=== PATIENT | female | born 1930 | race Caucasian/White ===

== ENCOUNTER 2017-09-10 08:48 | Day surgery (SDC) | payer MEDICARE, BC ==
[2017-09-10] MEDS ORDERED: Propofol 200 MG/20 ML SDV ONE ×2 (09:52→10:14)
[2017-09-10] MEDS ORDERED: fentaNYL 100 MCG/2 ML SDV ONE (09:52)
[2017-09-10] MEDS ORDERED: Lactated Ringers 1,000 ML IV SCH (10:00)
[2017-09-10 11:58] VITALS: BP 120/65
--- NOTE | 2017-09-10 14:41 | OR ---
DATE OF PROCEDURE: 09/10/2017 PREOPERATIVE DIAGNOSIS: Blood in stool. POSTOPERATIVE DIAGNOSES: Diverticulosis; small colon polyp 25 cm from the anal verge; blood in stool, etiology unknown. PROCEDURES PERFORMED: Colonoscopy to the cecum with biopsy resection of small polyp 25 cm from the anal verge. SURGEON: Sky De Souza MD. ANESTHESIA: IV anesthesia with monitored anesthesia care. INDICATION: This 87-year-old white female is referred for a colonoscopy because of blood in her stool. She says her last colonoscopic exam was done about ten years ago. I counseled her for the procedure, including risks and alternatives, and she gave her informed consent to proceed. DESCRIPTION OF PROCEDURE: The patient was placed in the left lateral decubitus position. IV anesthesia was administered by the Anesthesia Service. Time-out was held. A rectal exam was performed, which was unremarkable. The flexible video Olympus colonoscope was introduced through her anus, up her rectum, and out her colon all the way to the cecum. To accomplish this, we had to apply some abdominal compression. Once the cecum was reached, the scope was slowly withdrawn, examining the mucosa throughout. We saw multiple left-sided diverticula. There was no bleeding or inflammation associated with any of them. At about 25 cm from the anal verge, we encountered a small polyp, this was removed with several bites of the biopsy forceps. The scope was withdrawn further with no other lesions noted. The scope was retroflexed in the rectum with the distal rectum appearing unremarkable. The scope was straightened and removed. She tolerated the procedure well. Sky De Souza MD /[id number] [facility]
== END 2017-09-10 12:20 | disposition home or self-care (01) ==
LOC: JP.SDS 08:48
PROVIDERS: ATTEND Surgery
DX: D12.6 Benign neoplasm of colon, unspecified (principal); K57.30 Diverticulosis of large intestine without perforation or abscess without bleeding; I10 Essential (primary) hypertension; Z88.1 Allergy status to other antibiotic agents; Z88.8 Allergy status to other drugs, medicaments and biological substances
CPT/HCPCS: 45380; J2704; J3010; J7120; 88305

== ENCOUNTER 2020-01-22 10:56 | Emergency (ER) | payer MEDICARE, BC ==
[2020-01-22 11:11] VITALS: BP 185/88; PULSE 97
--- NOTE | 2020-01-22 11:31 | EDM.PDOC ---
ED HPI GENERAL MEDICAL PROBLEM - General Chief Complaint: Skin Complaint Stated Complaint: TICK UNDER LEFT ARM Time Seen by Provider: 01/22/20 11:33 Source of Information: Reports: Patient History Limitations: Reports: No Limitations - History of Present Illness INITIAL COMMENTS - FREE TEXT/NARRATIVE: pt arrived. with a concern that part of a tick remains in her left axilla. She also is concerned this could be a deer tick. Onset: Today Duration: Hour(s): Location: Reports: Upper Extremity, Left Associated Symptoms: Reports: No Other Symptoms - Related Data Allergies Allergy/AdvReac Type Severity Reaction Status Date / Time amoxicillin Allergy Other Verified 01/22/20 11:11 hydroxychloroquine Allergy Other Verified 01/22/20 11:11 levothyroxine sodium Allergy Cannot Verified 01/22/20 11:11 Remember lisinopril Allergy Cannot Verified 01/22/20 11:11 Remember meperidine HCl [From Demerol] Allergy Burning Verified 01/22/20 11:11 zolpidem AdvReac Confusion Verified 01/22/20 11:11 zolpidem tartrate AdvReac Delusions Verified 01/22/20 11:11 [From Ambien] Home Meds: Home Meds Albuterol Sulfate [Proair Hfa] 3 ml NEB QID PRN 07/25/15 [History] Albuterol [Proair HFA] 2 puff INH Q4HR PRN 07/25/15 [History] Aspirin [Low Dose Aspirin EC] 81 mg PO DAILY 07/25/15 [History] Calcium Carbonate [Tums] 500 mg PO DAILY 07/25/15 [History] Cholecalciferol (Vitamin D3) [Vitamin D3] 3,000 unit PO DAILY 07/25/15 [History] Hydrocortisone Acetate [Anusol-Hc] 25 mg RC BID PRN 07/25/15 [History] Levothyroxine Sodium [Synthroid] 112 mcg PO DAILY 07/25/15 [History] Multivitamin with Minerals [Multiple Vitamin] 1 tab PO DAILY 07/25/15 [History] Polyvinyl Alcohol [Liquitears] 1 drop EYEBOTH BID PRN 07/25/15 [History] Tiotropium [Spiriva] 1 cap INH DAILY 07/25/15 [History] Triamcinolone Acetonide [Triamcinolone Acetonide 0.1% Crm] 1 - 2 sprays TOP QID 07/25/15 [History] guaiFENesin [Mucinex] 600 mg PO ASDIRECTED PRN 07/25/15 [History] Glucosamine/D3/Boswellia Regla [Osteo Bi-Flex Caplet] 1 tab PO BID 11/11/16 [ History] Diclofenac Sodium [Voltaren 1% Gel] 2 gm TOP ASDIRECTED 09/08/17 [History] Lutein 20 mg PO DAILY 09/08/17 [History] Albuterol [Proventil Neb Soln] 3 ml INH QID 07/31/18 [History] Clobetasol [Clobetasol 0.05%] 1 gm TOP BID 07/31/18 [History] Ibuprofen 400 mg PO Q8H 07/31/18 [History] Iron,Carbonyl/Ascorbic Acid [Fe C Tablet] 1 tab PO BID 07/31/18 [History] Ketoconazole [Nizoral] 1 gm TOP WEEKLY 07/31/18 [History] Naproxen Sodium [Aleve] 220 mg PO BID PRN 06/11/19 [History] Past Medical History HEENT History: Reports: Cataract, Impaired Vision Cardiovascular History: Reports: Heart Murmur Respiratory History: Reports: Bronchitis, Recurrent, COPD, Intubation, Difficult , Intubation, Previous, Pneumonia, Recurrent, Other (See Below) Other Respiratory History: past trach from injury during intubation. Gastrointestinal History: Reports: Gastritis, GERD, Hemorrhoids, Hiatal Hernia, PUD Musculoskeletal History: Reports: Back Pain, Chronic, Osteoarthritis, Other ( See Below) Other Musculoskeletal History: bilat knee pain Neurological History: Reports: Migraines Endocrine/Metabolic History: Reports: Hypothyroidism, Osteopenia, Vitamin D Deficiency Hematologic History: Reports: B12 Deficiency, Blood Transfusion(s), Iron Deficiency Dermatologic History: Reports: Seborrheic Dermatitis - Infectious Disease History Infectious Disease History: Reports: C-Difficile, Measles, Mumps - Past Surgical History HEENT Surgical History: Reports: Cataract Surgery, Oral Surgery Cardiovascular Surgical History: Reports: None Respiratory Surgical History: Reports: Tracheostomy Other Respiratory Surgeries/Procedures: trach removed in 2001 GI Surgical History: Reports: Bariatric Procedure, Colonoscopy, EGD, Hernia, Abdominal Female Surgical History: Reports: D&C Endocrine Surgical History: Reports: None Neurological Surgical History: Reports: None Musculoskeletal Surgical History: Reports: Ganglion Cyst, Shoulder Surgery Oncologic Surgical History: Reports: None Dermatological Surgical History: Reports: Plastic Surgical Reconstruction/Repair Social & Family History - Tobacco Use Smoking Status *Q: Never Smoker - Caffeine Use Caffeine Use: Reports: Coffee ED ROS GENERAL - Review of Systems Review Of Systems: See Below Constitutional: Reports: No Symptoms HEENT: Reports: No Symptoms Respiratory: Reports: No Symptoms Cardiovascular: Reports: No Symptoms Endocrine: Reports: No Symptoms Musculoskeletal: Reports: Other ( deer tick in the left axilla. ) ED EXAM, SKIN/RASH Exam: See Below Text/Narrative:: pt had a female deer tick in the kleft axilla. She pulled it off but part of the head and a leg was left in. Exam Limited By: No Limitations General Appearance: Alert Extremities: Other (left axilla a female deer tick was stuck. The rest of it was removed .) Course - Vital Signs Last Recorded V/S: Last Vital Signs Temp 36.1 C 01/22/20 11:20 Pulse 97 01/22/20 11:20 Resp 18 01/22/20 11:20 BP 185/88 H 01/22/20 11:20 Pulse Ox 93 L 01/22/20 11:20 Departure - Departure Time of Disposition: 11:29 Disposition: Home, Self-Care 01 Condition: Fair Clinical Impression: Dermacentor andersoni tick bite - Discharge Information Instructions: Tick Bite Information, Adult, [id number] Referrals: Sadaf Shahid MD [Primary Care Provider] - Forms: ED Department Discharge Care Plan Goals: doxycline 100 m 2 tabs today and tomorrow-- to prevent tick born disease Warm pack the site Sepsis Event Note - Evaluation Sepsis Screening Result: No Definite Risk - Focused Exam Date Exam was Performed: 01/23/20 Time Exam was Performed: 07:36
== END 2020-01-22 11:42 | disposition home or self-care (01) ==
LOC: JP.ED 10:56
DX: S40.862A Insect bite (nonvenomous) of left upper arm, initial encounter (principal); J44.9 Chronic obstructive pulmonary disease, unspecified; K21.9 Gastro-esophageal reflux disease without esophagitis; M19.90 Unspecified osteoarthritis, unspecified site; E03.9 Hypothyroidism, unspecified; Z79.82 Long term (current) use of aspirin; Z79.899 Other long term (current) drug therapy; Z88.1 Allergy status to other antibiotic agents; Z88.8 Allergy status to other drugs, medicaments and biological substances; Z88.5 Allergy status to narcotic agent; W57.XXXA Bitten or stung by nonvenomous insect and other nonvenomous arthropods, initial encounter
CPT/HCPCS: 99282; 99283

== ENCOUNTER 2020-05-12 20:21 | Emergency (ER) | payer MEDICARE, BC ==
[2020-05-12 21:01] VITALS: BP 164/85; PULSE 114
--- NOTE | 2020-05-12 21:48 | EDM.PDOC ---
ED HPI GENERAL MEDICAL PROBLEM - General Chief Complaint: General Stated Complaint: FEVER,HIP PAIN Time Seen by Provider: 05/12/20 21:25 Source of Information: Reports: Patient, RN Notes Reviewed History Limitations: Reports: No Limitations - History of Present Illness INITIAL COMMENTS - FREE TEXT/NARRATIVE: Anisha presents today for complaints of fever, not feeling herself, feeling "doggy" with some nausea, headache off and on all day today. She states she was working today and got really sweaty. No central air in her home, she has ceiling fans. She reports body aches, most pain in her right hip. She states she has been doing physical therapy in the building. She denies vomiting, diarrhea, constipation, any recent injuries or falls, sore throat, cough, SOB, difficulty breathing or other concerns. - Related Data Allergies Allergy/AdvReac Type Severity Reaction Status Date / Time amoxicillin Allergy Other Verified 01/22/20 11:11 hydroxychloroquine Allergy Other Verified 01/22/20 11:11 levothyroxine sodium Allergy Cannot Verified 01/22/20 11:11 Remember lisinopril Allergy Cannot Verified 01/22/20 11:11 Remember meperidine HCl [From Demerol] Allergy Burning Verified 01/22/20 11:11 zolpidem AdvReac Confusion Verified 01/22/20 11:11 zolpidem tartrate AdvReac Delusions Verified 01/22/20 11:11 [From Ambien] Home Meds: Home Meds Albuterol [Proair HFA] 2 puff INH Q4HR PRN 07/25/15 [History] Aspirin [Low Dose Aspirin EC] 81 mg PO DAILY 07/25/15 [History] Calcium Carbonate [Tums] 500 mg PO DAILY 07/25/15 [History] Cholecalciferol (Vitamin D3) [Vitamin D3] 3,000 unit PO DAILY 07/25/15 [History] Hydrocortisone Acetate [Anusol-Hc] 25 mg RC BID PRN 07/25/15 [History] Levothyroxine Sodium [Synthroid] 112 mcg PO DAILY 07/25/15 [History] Multivitamin with Minerals [Multiple Vitamin] 1 tab PO DAILY 07/25/15 [History] Polyvinyl Alcohol [Liquitears] 1 drop EYEBOTH BID PRN 07/25/15 [History] Tiotropium [Spiriva] 1 cap INH DAILY 07/25/15 [History] Triamcinolone Acetonide [Triamcinolone Acetonide 0.1% Crm] 1 - 2 sprays TOP QID 07/25/15 [History] guaiFENesin [Mucinex] 600 mg PO ASDIRECTED PRN 07/25/15 [History] Glucosamine/D3/Boswellia Regla [Osteo Bi-Flex Caplet] 1 tab PO BID 11/11/16 [History] Diclofenac Sodium [Voltaren 1% Gel] 2 gm TOP ASDIRECTED 09/08/17 [History] Lutein 20 mg PO DAILY 09/08/17 [History] Albuterol [Proventil Neb Soln] 3 ml INH QID 07/31/18 [History] Clobetasol [Clobetasol 0.05%] 1 gm TOP BID 07/31/18 [History] Ibuprofen 400 mg PO Q8H 07/31/18 [History] Iron,Carbonyl/Ascorbic Acid [Fe C Tablet] 1 tab PO BID 07/31/18 [History] Ketoconazole [Nizoral] 1 gm TOP WEEKLY 07/31/18 [History] Naproxen Sodium [Aleve] 220 mg PO BID PRN 06/11/19 [History] Past Medical History HEENT History: Reports: Cataract, Impaired Vision Cardiovascular History: Reports: Heart Murmur Respiratory History: Reports: Bronchitis, Recurrent, COPD, Intubation, Difficult, Intubation, Previous, Pneumonia, Recurrent, Other (See Below) Other Respiratory History: past trach from injury during intubation. Gastrointestinal History: Reports: Gastritis, GERD, Hemorrhoids, Hiatal Hernia, PUD Musculoskeletal History: Reports: Back Pain, Chronic, Osteoarthritis, Other (See Below) Other Musculoskeletal History: bilat knee pain Neurological History: Reports: Migraines Endocrine/Metabolic History: Reports: Hypothyroidism, Osteopenia, Vitamin D Deficiency Hematologic History: Reports: B12 Deficiency, Blood Transfusion(s), Iron Deficiency Dermatologic History: Reports: Seborrheic Dermatitis - Infectious Disease History Infectious Disease History: Reports: C-Difficile, Measles, Mumps - Past Surgical History HEENT Surgical History: Reports: Cataract Surgery, Oral Surgery Cardiovascular Surgical History: Reports: None Respiratory Surgical History: Reports: Tracheostomy Other Respiratory Surgeries/Procedures: trach removed in 2001 GI Surgical History: Reports: Bariatric Procedure, Colonoscopy, EGD, Hernia, Abdominal Female Surgical History: Reports: D&C Oncologic Surgical History: Reports: None Dermatological Surgical History: Reports: Plastic Surgical Reconstruction/Repair Social & Family History - Caffeine Use Caffeine Use: Reports: Coffee ED ROS GENERAL - Review of Systems Review Of Systems: See Below Constitutional: Reports: Fever, Diaphoresis. Denies: Chills, Malaise, Weakness, Fatigue HEENT: Reports: No Symptoms, Other (headache off and on) Respiratory: Reports: No Symptoms Cardiovascular: Reports: No Symptoms Endocrine: Denies: Fatigue, Polydypsia, Polyuria GI/Abdominal: Reports: Nausea. Denies: Abdominal Pain, Anorexia, Black Stool, Bloody Stool, Constipation, Diarrhea, Difficulty Swallowing, Distension, Hematemesis, Hematochezia, Mucous in Stool, Stool Incontinence, Vomiting : Denies: Discharge, Dysuria, Flank Pain, Frequency, Hematuria, Pain, Urgency, Urinary Retention Musculoskeletal: Reports: Other (bilateral hip pain, right more then left. She denies pain being worse then her chronic pain. ) Skin: Reports: No Symptoms Neurological: Reports: Headache. Denies: Confusion, Dizziness, Numbness, Paresthesia, Seizure, Syncope, Tingling, Trouble Speaking, Difficulty Walking, Weakness, Change in Speech, Gait Disturbance Psychiatric: Reports: No Symptoms Hematologic/Lymphatic: Reports: No Symptoms Immunologic: Reports: No Symptoms ED EXAM, GENERAL - Physical Exam Exam: See Below Exam Limited By: No Limitations General Appearance: Alert, WD/WN, No Apparent Distress Eye Exam: Bilateral Eye: EOMI, Normal Inspection, PERRL Ears: Normal External Exam, Normal Canal, Hearing Grossly Normal, Normal TMs Nose: Normal Inspection, Normal Mucosa Throat/Mouth: Normal Inspection, Normal Lips, Normal Gums, Normal Oropharynx, No Airway Compromise, Other (Soft/hoarse voice due to history/multiple surgeries) Head: Atraumatic, Normocephalic Neck: Normal Inspection, Supple, Non-Tender, Full Range of Motion. No: Lymphadenopathy (R), Lymphadenopathy (L) Respiratory/Chest: No Respiratory Distress, Lungs Clear, Normal Breath Sounds, No Accessory Muscle Use, Chest Non-Tender. No: Crackles, Rales, Rhonchi, Wheezing, Stridor, Accessory Muscle Use, Retractions Cardiovascular: Normal Peripheral Pulses, Regular Rate, Rhythm, No Edema, No Gallop, No Murmur, No Rub Peripheral Pulses: 2+: Radial (L), Radial (R), Dorsalis Pedis (L), Dorsalis Pedis (R) GI/Abdominal: Normal Bowel Sounds, Soft, Non-Tender, No Organomegaly, No Distention, No Mass, Pelvis Stable. No: Guarding, Rigid, Rebound, Tender Back Exam: Normal Inspection, Full Range of Motion. No: CVA Tenderness (R), CVA Tenderness (L) (for current age/status) Extremities: Normal Inspection, Normal Range of Motion, Non-Tender, No Pedal Edema, Normal Capillary Refill Neurological: Alert, Oriented, CN II-XII Intact, Normal Cognition, Normal Gait, No Motor/Sensory Deficits Psychiatric: Normal Affect, Normal Mood Skin Exam: Warm, Dry, Intact, Normal Color, No Rash Lymphatic: No Adenopathy Course - Vital Signs Last Recorded V/S: Last Vital Signs Temp 37.1 C 05/12/20 21:01 Pulse 114 H 05/12/20 21:01 Resp 16 05/12/20 21:01 BP 164/85 H 05/12/20 21:01 Pulse Ox 94 L 05/12/20 21:01 - Orders/Labs/Meds Orders: Active Orders 24 hr Category Date Time Status CORONAVIRUS COVID-19, EMMETT Routine Lab 05/12/20 22:12 Received Labs: Laboratory Tests 05/12/20 05/12/20 05/12/20 Range/Units 21:37 21:51 22:09 WBC 4.5 (4.5-11.0) K/uL RBC 4.22 (3.30-5.50) M/uL Hgb 12.7 (12.0-15.0) g/dL Hct 41.3 (36.0-48.0) % MCV 98 (80-98) fL MCH 30 (27-31) pg MCHC 31 L (32-36) % Plt Count 219 (150-400) K/uL Neut % (Auto) 84 H (36-66) % Lymph % (Auto) 6 L (24-44) % [place] % (Auto) 10 H (2-6) % Eos % (Auto) 0 L (2-4) % Baso % (Auto) 0 (0-1) % Sodium 137 L (140-148) mmol/L Potassium 4.5 (3.6-5.2) mmol/L Chloride 102 (100-108) mmol/L Carbon Dioxide 27 (21-32) mmol/L Anion Gap 12.5 (5.0-14.0) mmol/L BUN 17 (7-18) mg/dL Creatinine 0.8 (0.6-1.0) mg/dL Est Cr Clr Drug Dosing 34.24 mL/min Estimated GFR (MDRD) > 60 (>60) Glucose 142 H (74-106) mg/dL Calcium 9.7 (8.5-10.1) mg/dL Urine Color Yellow (YELLOW) Urine Appearance Clear (CLEAR) Urine pH 5.5 (5.0-8.0) Ur Specific [place] >= 1.030 (1.008-1.030) Urine Protein Negative (NEGATIVE) mg/dL Urine Glucose (UA) Negative (NEGATIVE) mg/dL Urine Ketones 15 H (NEGATIVE) mg/dL Urine Occult Blood Moderate H (NEGATIVE) Urine Nitrite Negative (NEGATIVE) Urine Bilirubin Negative (NEGATIVE) Urine Urobilinogen 0.2 (0.2-1.0) EU/dL Ur Leukocyte Esterase Negative (NEGATIVE) Urine RBC Not seen (0-5) Urine WBC 0-5 (0-5) Ur Epithelial Cells Few Amorphous Sediment Few Urine Bacteria Not seen Urine Mucus Not seen Patient lab work reviewed. - Re-Assessments/Exams Free Text/Narrative Re-Assessment/Exam: 05/12/20 22:30 Patient resting, she denies complaints. 05/12/20 23:00 Patient resting, she denies complaints. Departure - Departure Time of Disposition: 22:49 Disposition: Home, Self-Care 01 Condition: Good Clinical Impression: Dehydration, Microscopic hematuria, Elevated glucose level - Discharge Information *PRESCRIPTION DRUG MONITORING PROGRAM REVIEWED*: Not Applicable *COPY OF PRESCRIPTION DRUG MONITORING REPORT IN PATIENT LUCAS: Not Applicable Instructions: Dehydration, Adult, [id number], Hematuria, Adult Referrals: Sadaf Shahid MD [Primary Care Provider] - Forms: ED Department Discharge Additional Instructions: You have been evaluated and treated for dehydration, microscopic hematuria and elevated blood glucose. You may be developing an illness from a virus, nothing acute at this time. No active sign of infection today, no fever while in the emergency room, vital signs stable. You will need to follow up with your primary provider in 3 to 5 days to repeat urine and any other pertinent lab work/US or other testing as needed. Take tylenol (acetaminophen) as needed for fever/pain. Push fluids to stay hydrated, water and sugar free gatorade. Return to the emergency room for any worsening, issues or concerns. Stay home, avoid large groups until COVID19 test is resulted. Sepsis Event Note (ED) - Evaluation Sepsis Screening Result: No Definite Risk - Focused Exam Vital Signs: Vital Signs Temp Pulse Resp BP Pulse Ox 05/12/20 21:01 37.1 C 114 H 16 164/85 H 94 L 05/12/20 21:00 37.1 C 114 H 16 164/85 H 94 L - My Orders Last 24 Hours: My Active Orders 05/12/20 22:12 CORONAVIRUS COVID-19, EMMETT Routine - Assessment/Plan Last 24 Hours: My Active Orders 05/12/20 22:12 CORONAVIRUS COVID-19, EMMETT Routine Assessment:: Dehydration, Microscopic hematuria, Elevated glucose level Plan: Patient evaluated and treated for dehydration, microscopic hematuria and elevated blood glucose. May be developing an illness from a virus, nothing acute at this time. No active sign of infection today, no fever while in the emergency room, vital signs stable. Will need to follow up with your primary provider in 3 to 5 days to repeat urine and any other pertinent lab work/US or other testing as needed. Take tylenol (acetaminophen) as needed for fever/pain. Push fluids to stay hydrated, water and sugar free gatorade. Return to the emergency room for any worsening, issues or concerns. Stay home, avoid large groups until COVID19 test is resulted.
== END 2020-05-12 23:04 | disposition home or self-care (01) ==
LOC: JP.ED 20:21
DX: E86.0 Dehydration (principal); J44.9 Chronic obstructive pulmonary disease, unspecified; R31.29 Other microscopic hematuria; K21.9 Gastro-esophageal reflux disease without esophagitis; E03.9 Hypothyroidism, unspecified; R73.9 Hyperglycemia, unspecified; Z88.0 Allergy status to penicillin; Z88.3 Allergy status to other anti-infective agents; Z88.8 Allergy status to other drugs, medicaments and biological substances; Z88.6 Allergy status to analgesic agent; Z79.899 Other long term (current) drug therapy; Z88.5 Allergy status to narcotic agent; Z20.828 Contact with and (suspected) exposure to other viral communicable diseases
CPT/HCPCS: 36415; 80048; 81001; 85025; 99283; 99284; U0002

== ENCOUNTER 2020-05-14 16:01 | Inpatient (IN) | payer MEDICARE, BC ==
[2020-05-14] MEDS ORDERED: Lactated Ringers 1,000 ML IV SCH (17:00)
--- NOTE | 2020-05-14 17:06 | EDM.PDOC ---
ED HPI GENERAL MEDICAL PROBLEM - General Chief Complaint: Gastrointestinal Problem Stated Complaint: HEADACHE,HIP PAIN, DEHYDRATED Time Seen by Provider: 05/14/20 16:40 Source of Information: Reports: Patient, Old Records, RN Notes Reviewed History Limitations: Reports: No Limitations - History of Present Illness INITIAL COMMENTS - FREE TEXT/NARRATIVE: 89-year-old female presents emergency department a complaint of feeling ill body aches and fevers, she has been ill for the last several days was in the emergency department 2 days ago at which time she did not have a fever complaint of dehydration due to poor oral intake evaluation at the time was unrevealing urine blood work unremarkable felt somewhat better after liter fluids. However she states she has continued decline fever started today she does have body aches hip pain otherwise no shortness of breath no nausea vomiting no problems with urination no chest pain - Related Data Allergies Allergy/AdvReac Type Severity Reaction Status Date / Time amoxicillin Allergy Other Verified 05/14/20 16:19 hydroxychloroquine Allergy Other Verified 05/14/20 16:19 levothyroxine sodium Allergy Cannot Verified 05/14/20 16:19 Remember lisinopril Allergy Cannot Verified 05/14/20 16:19 Remember meperidine HCl [From Demerol] Allergy Burning Verified 05/14/20 16:19 zolpidem AdvReac Confusion Verified 05/14/20 16:19 zolpidem tartrate AdvReac Delusions Verified 05/14/20 16:19 [From Ambien] Home Meds: Home Meds Albuterol [Proair HFA] 2 puff INH Q4HR PRN 07/25/15 [History] Aspirin [Low Dose Aspirin EC] 81 mg PO DAILY 07/25/15 [History] Calcium Carbonate [Tums] 500 mg PO DAILY 07/25/15 [History] Cholecalciferol (Vitamin D3) [Vitamin D3] 3,000 unit PO DAILY 07/25/15 [History] Hydrocortisone Acetate [Anusol-Hc] 25 mg RC BID PRN 07/25/15 [History] Levothyroxine Sodium [Synthroid] 112 mcg PO DAILY 07/25/15 [History] Multivitamin with Minerals [Multiple Vitamin] 1 tab PO DAILY 07/25/15 [History] Polyvinyl Alcohol [Liquitears] 1 drop EYEBOTH BID PRN 07/25/15 [History] Tiotropium [Spiriva] 1 cap INH DAILY 07/25/15 [History] Triamcinolone Acetonide [Triamcinolone Acetonide 0.1% Crm] 1 - 2 sprays TOP QID 07/25/15 [History] guaiFENesin [Mucinex] 600 mg PO ASDIRECTED PRN 07/25/15 [History] Glucosamine/D3/Boswellia Regla [Osteo Bi-Flex Caplet] 1 tab PO BID 11/11/16 [History] Diclofenac Sodium [Voltaren 1% Gel] 2 gm TOP ASDIRECTED 09/08/17 [History] Lutein 20 mg PO DAILY 09/08/17 [History] Albuterol [Proventil Neb Soln] 3 ml INH QID 07/31/18 [History] Clobetasol [Clobetasol 0.05%] 1 gm TOP BID 07/31/18 [History] Ibuprofen 400 mg PO Q8H 07/31/18 [History] Iron,Carbonyl/Ascorbic Acid [Fe C Tablet] 1 tab PO BID 07/31/18 [History] Ketoconazole [Nizoral] 1 gm TOP WEEKLY 07/31/18 [History] Naproxen Sodium [Aleve] 220 mg PO BID PRN 06/11/19 [History] Past Medical History HEENT History: Reports: Cataract, Impaired Vision Cardiovascular History: Reports: Heart Murmur Respiratory History: Reports: Bronchitis, Recurrent, COPD, Intubation, Difficult, Intubation, Previous, Pneumonia, Recurrent, Other (See Below) Other Respiratory History: past trach from injury during intubation. Gastrointestinal History: Reports: Gastritis, GERD, Hemorrhoids, Hiatal Hernia, PUD Musculoskeletal History: Reports: Back Pain, Chronic, Osteoarthritis, Other (See Below) Other Musculoskeletal History: bilat knee pain Neurological History: Reports: Migraines Endocrine/Metabolic History: Reports: Hypothyroidism, Osteopenia, Vitamin D Deficiency Hematologic History: Reports: B12 Deficiency, Blood Transfusion(s), Iron Deficiency Dermatologic History: Reports: Seborrheic Dermatitis - Infectious Disease History Infectious Disease History: Reports: C-Difficile, Measles, Mumps - Past Surgical History HEENT Surgical History: Reports: Cataract Surgery, Oral Surgery Cardiovascular Surgical History: Reports: None Respiratory Surgical History: Reports: Tracheostomy Other Respiratory Surgeries/Procedures: trach removed in 2001 GI Surgical History: Reports: Bariatric Procedure, Colonoscopy, EGD, Hernia, Abdominal Female Surgical History: Reports: D&C Oncologic Surgical History: Reports: None Dermatological Surgical History: Reports: Plastic Surgical Reconstruction/Repair Social & Family History - Tobacco Use Smoking Status *Q: Never Smoker - Caffeine Use Caffeine Use: Reports: Coffee ED ROS GENERAL - Review of Systems Review Of Systems: See Below Constitutional: Reports: Fever, Chills, Weakness HEENT: Reports: No Symptoms Respiratory: Reports: No Symptoms Cardiovascular: Reports: No Symptoms GI/Abdominal: Reports: No Symptoms : Reports: No Symptoms Musculoskeletal: Reports: Joint Pain, Muscle Pain (Hip pain body aches) Skin: Reports: No Symptoms Neurological: Reports: No Symptoms ED EXAM, SEPSIS - Physical Exam Exam: See Below Text/Narrative:: General: Elderly female, not in any distress, alert and oriented x3 HEENT: head is atraumatic normocephalic, eyes pupils equal round reactive to light, sclera clear no conjunctivitis appreciated. Ears tympanic membranes clear and foster landmarks and light reflex are present bilaterally canals are clear. Nose no septal deviation, nares are clear, no blood present. Mouth mucosa is dry and pink no erythema or exudate noted in soft palate, tongue is midline uvula is midline, dentition is intact. Neck: Supple no thyromegaly no tracheal deviation. Nodes: Cervical nodes subclavicular nodes nontender no palpable lymphadenopathy noted. Lungs: clear to auscultation bilaterally with symmetrical respirations, no adventitious noise appreciated. CV: Regular rate and rhythm S1 and S2 appreciated 2 out of 6 systolic ejection murmur best appreciated at left sternal border,, no rubs or gallops noted. Abdomen: Soft, nontender, no palpable masses or organomegaly appreciated, no distention no guarding bowel sounds are present, [scars ]. Neuro: GCS 15 Skin: Warm and dry, intact Extremities: No lower extremity edema appreciated, pedal pulse is +2. Course - Vital Signs Last Recorded V/S: Last Vital Signs Temp 101.3 F H 05/14/20 16:29 Pulse 100 05/14/20 16:44 Resp 16 05/14/20 16:29 BP 132/62 05/14/20 16:44 Pulse Ox 91 L 05/14/20 16:44 - Orders/Labs/Meds Orders: Active Orders 24 hr Category Date Time Status Vital Signs [RC] Q1H Care 05/14/20 17:00 Active Chest 1V Frontal [CR] Stat Exams 05/14/20 16:59 Taken CORONAVIRUS COVID-19 EMMETT [MOLEC] Stat Lab 05/14/20 17:51 Received CULTURE BLOOD [BC] Urgent Lab 05/14/20 17:10 Received CULTURE BLOOD [BC] Urgent Lab 05/14/20 17:15 Received INFLUENZA A+B AG SCREEN [RM] Stat Lab 05/14/20 17:46 Ordered LACTATE SEPSIS W/ REFLEX [CHEM] Stat Lab 05/14/20 17:15 Received UA W/MICROSCOPIC [URIN] Urgent Lab 05/14/20 16:59 Ordered Doxycycline [Vibramycin] 100 mg Med 05/14/20 17:56 Active Sodium Chloride 0.9% [Normal Saline] 100 ml IV ONETIME Lactated Ringers [Ringers, Lactated] 1,000 ml Med 05/14/20 17:00 Active IV ASDIRECTED cefTRIAXone [Rocephin] 1 gm Med 05/14/20 17:56 Active Sodium Chloride 0.9% [Normal Saline] 50 ml IV ONETIME Blood Culture x2 Reflex Set [OM.PC] Urgent Oth 05/14/20 17:00 Ordered Isolation [COMM] Routine Oth 05/14/20 17:47 Ordered Severe Sepsis Onset Time [OM.PC] Stat Oth 05/14/20 17:00 Ordered Medication Orders Lactated Ringer's (Ringers, Lactated) 1,000 mls @ 999 mls/hr IV ASDIRECTED SELINA Last Admin: 05/14/20 17:42 Dose: 999 mls/hr Documented by: PHIL Doxycycline Hyclate 100 mg/ (Sodium Chloride) 100 mls @ 100 mls/hr IV ONETIME ONE Stop: 05/14/20 18:55 Ceftriaxone Sodium 1 gm/ (Sodium Chloride) 50 mls @ 100 mls/hr IV ONETIME ONE Stop: 05/14/20 18:25 Labs: Laboratory Tests 05/14/20 05/14/20 05/14/20 Range/Units 17:00 17:15 17:15 WBC 4.9 (4.5-11.0) K/uL RBC 4.15 (3.30-5.50) M/uL Hgb 12.5 (12.0-15.0) g/dL Hct 39.6 (36.0-48.0) % MCV 95 (80-98) fL MCH 30 (27-31) pg MCHC 32 (32-36) % Plt Count 101 L (150-400) K/uL Neut % (Auto) 93 H (36-66) % Lymph % (Auto) 3 L (24-44) % [place] % (Auto) 4 (2-6) % Eos % (Auto) 0 L (2-4) % Baso % (Auto) 0 (0-1) % Sodium (140-148) mmol/L Potassium (3.6-5.2) mmol/L Chloride (100-108) mmol/L Carbon Dioxide (21-32) mmol/L Anion Gap (5.0-14.0) mmol/L BUN (7-18) mg/dL Creatinine (0.6-1.0) mg/dL Est Cr Clr Drug Dosing mL/min Estimated GFR (MDRD) (>60) Glucose (74-106) mg/dL Lactic Acid (0.4-2.0) mmol/L Calcium (8.5-10.1) mg/dL Total Bilirubin (0.2-1.0) mg/dL AST (15-37) U/L ALT (12-78) U/L Alkaline Phosphatase (46-116) U/L Troponin I < 0.017 (0.000-0.056) ng/mL C-Reactive Protein (0.0-0.3) mg/dL Total Protein (6.4-8.2) g/dL Albumin (3.4-5.0) g/dL Globulin (2.3-3.5) g/dL Albumin/Globulin Ratio (1.2-2.2) Lipase 26 L (73-393) U/L Procalcitonin 0.33 ng/mL 05/14/20 05/14/20 Range/Units 17:15 17:15 WBC (4.5-11.0) K/uL RBC (3.30-5.50) M/uL Hgb (12.0-15.0) g/dL Hct (36.0-48.0) % MCV (80-98) fL MCH (27-31) pg MCHC (32-36) % Plt Count (150-400) K/uL Neut % (Auto) (36-66) % Lymph % (Auto) (24-44) % [place] % (Auto) (2-6) % Eos % (Auto) (2-4) % Baso % (Auto) (0-1) % Sodium 133 L (140-148) mmol/L Potassium 4.1 (3.6-5.2) mmol/L Chloride 98 L (100-108) mmol/L Carbon Dioxide 28 (21-32) mmol/L Anion Gap 11.1 (5.0-14.0) mmol/L BUN 16 (7-18) mg/dL Creatinine 0.8 (0.6-1.0) mg/dL Est Cr Clr Drug Dosing 34.24 mL/min Estimated GFR (MDRD) > 60 (>60) Glucose 156 H (74-106) mg/dL Lactic Acid 1.5 (0.4-2.0) mmol/L Calcium 8.9 (8.5-10.1) mg/dL Total Bilirubin 0.6 (0.2-1.0) mg/dL AST 60 H D (15-37) U/L ALT 37 D (12-78) U/L Alkaline Phosphatase 51 (46-116) U/L Troponin I (0.000-0.056) ng/mL C-Reactive Protein 8.43 H (0.0-0.3) mg/dL Total Protein 6.3 L (6.4-8.2) g/dL Albumin 2.9 L (3.4-5.0) g/dL Globulin 3.4 (2.3-3.5) g/dL Albumin/Globulin Ratio 0.9 L (1.2-2.2) Lipase (73-393) U/L Procalcitonin ng/mL Meds: Medications Generic Name Dose Route Start Last Admin Trade Name Freq PRN Reason Stop Dose Admin Lactated Ringer's 1,000 mls @ 999 mls/hr 05/14/20 17:00 05/14/20 17:42 Ringers, Lactated IV 999 mls/hr ASDIRECTED SELINA Administration Doxycycline Hyclate 100 mg/ 100 mls @ 100 mls/hr 05/14/20 17:56 Sodium Chloride IV 05/14/20 18:55 ONETIME ONE Ceftriaxone Sodium 1 gm/ 50 mls @ 100 mls/hr 05/14/20 17:56 Sodium Chloride IV 05/14/20 18:25 ONETIME ONE Departure - Departure Time of Disposition: 18:00 Disposition: Admitted As Inpatient 66 Condition: Fair Clinical Impression: Sepsis Qualifiers: Sepsis type: sepsis due to unspecified organism Sepsis acute organ dysfunction status: without acute organ dysfunction Qualified Code(s): A41.9 - Sepsis, unspecified organism - Discharge Information Referrals: Sadaf Shahid MD [Primary Care Provider] - Forms: ED Department Discharge Sepsis Event Note (ED) - Evaluation Sepsis Screening Result: Possible Sepsis Risk - Focused Exam Vital Signs: Vital Signs Temp Pulse Resp BP Pulse Ox 05/14/20 16:44 100 132/62 91 L 05/14/20 16:29 101.3 F H 110 H 16 169/97 H 94 L 05/14/20 16:15 101.3 F H 110 H 16 169/97 H 94 L - My Orders Last 24 Hours: My Active Orders 05/14/20 16:59 Chest 1V Frontal [CR] Stat UA W/MICROSCOPIC [URIN] Urgent 05/14/20 17:00 Vital Signs [RC] Q1H Lactated Ringers [Ringers, Lactated] 1,000 ml IV ASDIRECTED Blood Culture x2 Reflex Set [OM.PC] Urgent Severe Sepsis Onset Time [OM.PC] Stat 05/14/20 17:10 CULTURE BLOOD [BC] Urgent 05/14/20 17:15 CULTURE BLOOD [BC] Urgent LACTATE SEPSIS W/ REFLEX [CHEM] Stat 05/14/20 17:46 INFLUENZA A+B AG SCREEN [RM] Stat 05/14/20 17:47 Isolation [COMM] Routine 05/14/20 17:51 CORONAVIRUS COVID-19 EMMETT [MOLEC] Stat 05/14/20 17:56 Doxycycline [Vibramycin] 100 mg Sodium Chloride 0.9% [Normal Saline] 100 ml IV ONETIME cefTRIAXone [Rocephin] 1 gm Sodium Chloride 0.9% [Normal Saline] 50 ml IV ONETIME - Assessment/Plan Last 24 Hours: My Active Orders 05/14/20 16:59 Chest 1V Frontal [CR] Stat UA W/MICROSCOPIC [URIN] Urgent 05/14/20 17:00 Vital Signs [RC] Q1H Lactated Ringers [Ringers, Lactated] 1,000 ml IV ASDIRECTED Blood Culture x2 Reflex Set [OM.PC] Urgent Severe Sepsis Onset Time [OM.PC] Stat 05/14/20 17:10 CULTURE BLOOD [BC] Urgent 05/14/20 17:15 CULTURE BLOOD [BC] Urgent LACTATE SEPSIS W/ REFLEX [CHEM] Stat 05/14/20 17:46 INFLUENZA A+B AG SCREEN [RM] Stat 05/14/20 17:47 Isolation [COMM] Routine 05/14/20 17:51 CORONAVIRUS COVID-19 EMMETT [MOLEC] Stat 05/14/20 17:56 Doxycycline [Vibramycin] 100 mg Sodium Chloride 0.9% [Normal Saline] 100 ml IV ONETIME cefTRIAXone [Rocephin] 1 gm Sodium Chloride 0.9% [Normal Saline] 50 ml IV ONETIME Plan: Assessment Acuity = acute Site and laterality = sepsis Etiology = unknown Manifestations = fever Location of injury = Home Lab values = platelets low at 101 consistent with thrombocytopenia sodium low at 133 consistent hyponatremia lactic acid normal 1.5 troponin was negative CRP elevated 8.43 procalcitonin elevated 0.33 chest x-ray shows no acute process official read radiologist pending Plan Call discussed case hospitalist on-call at [phone] kindly agreed to come and evaluate the patient in the emergency department thus far she has been given 1 L fluids will start antibiotic Rocephin and doxycycline blood cultures are pending This note was dictated using edenes voice recognition software please call with any questions on syntax or grammar.
[2020-05-14] MEDS ORDERED: cefTRIAXone 1 GM in Sodium Chloride 0.9% 50 ML IV ONE (17:56)
[2020-05-14] MEDS ORDERED: Doxycycline 100 MG in Sodium Chloride 0.9% 100 ML IV ONE (17:56)
--- NOTE | 2020-05-14 18:41 | PCM.HP.2 ---
H&P History of Present Illness - General Date of Service: 05/14/20 Admit Problem/Dx: Admission Diagnosis/Problem Admission Diagnosis/Problem COPD, Moderate chronic obstructive pulmonary disease Source of Information: Patient, Provider, RN Notes Reviewed History Limitations: Reports: No Limitations - History of Present Illness Initial Comments - Free Text/Narative: Ms. 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 She was feeling well until 2 days ago when she noted onset of fever and progressive symptoms of weakness. She presented to the emergency department at that time and on evaluation was afebrile with a normal white blood cell count. No significant abnormalities were identified and she was discharged home. Over the last 2 days she has had more fever and weakness with development of headache and myalgias. On evaluation in the emergency department oxygenation is within desired range. Chest x-ray shows evidence of COPD but no obvious infiltrate. White blood cell count is low normal, there is mild thrombocytope caleb, mild elevation in AST. [place] ticks after she has been outside. - Related Data Allergies/Adverse Reactions: Allergies Allergy/AdvReac Type Severity Reaction Status Date / Time amoxicillin Allergy Other Verified 05/14/20 16:19 hydroxychloroquine Allergy Other Verified 05/14/20 16:19 levothyroxine sodium Allergy Cannot Verified 05/14/20 16:19 Remember lisinopril Allergy Cannot Verified 05/14/20 16:19 Remember meperidine HCl [From Demerol] Allergy Burning Verified 05/14/20 16:19 zolpidem AdvReac Confusion Verified 05/14/20 16:19 zolpidem tartrate AdvReac Delusions Verified 05/14/20 16:19 [From Ambien] Home Medications: Home Meds Albuterol [Proair HFA] 2 puff INH Q4HR PRN 07/25/15 [History] Aspirin [Low Dose Aspirin EC] 81 mg PO DAILY 07/25/15 [History] Calcium Carbonate [Tums] 500 mg PO DAILY 07/25/15 [History] Cholecalciferol (Vitamin D3) [Vitamin D3] 3,000 unit PO DAILY 07/25/15 [History] Hydrocortisone Acetate [Anusol-Hc] 25 mg RC BID PRN 07/25/15 [History] Levothyroxine Sodium [Synthroid] 112 mcg PO DAILY 07/25/15 [History] Multivitamin with Minerals [Multiple Vitamin] 1 tab PO DAILY 07/25/15 [History] Polyvinyl Alcohol [Liquitears] 1 drop EYEBOTH BID PRN 07/25/15 [History] Tiotropium [Spiriva] 1 cap INH DAILY 07/25/15 [History] Triamcinolone Acetonide [Triamcinolone Acetonide 0.1% Crm] 1 - 2 sprays TOP QID 07/25/15 [History] guaiFENesin [Mucinex] 600 mg PO ASDIRECTED PRN 07/25/15 [History] Glucosamine/D3/Boswellia Regla [Osteo Bi-Flex Caplet] 1 tab PO BID 11/11/16 [History] Diclofenac Sodium [Voltaren 1% Gel] 2 gm TOP ASDIRECTED 09/08/17 [History] Lutein 20 mg PO DAILY 09/08/17 [History] Albuterol [Proventil Neb Soln] 3 ml INH QID 07/31/18 [History] Clobetasol [Clobetasol 0.05%] 1 gm TOP BID 07/31/18 [History] Ibuprofen 400 mg PO Q8H 07/31/18 [History] Iron,Carbonyl/Ascorbic Acid [Fe C Tablet] 1 tab PO BID 07/31/18 [History] Ketoconazole [Nizoral] 1 gm TOP WEEKLY 07/31/18 [History] Naproxen Sodium [Aleve] 220 mg PO BID PRN 06/11/19 [History] Past Medical History HEENT History: Reports: Cataract, Impaired Vision Cardiovascular History: Reports: Heart Murmur Respiratory History: Reports: Bronchitis, Recurrent, COPD, Intubation, Difficult, Intubation, Previous, Pneumonia, Recurrent, Other (See Below) Other Respiratory History: past trach from injury during intubation. Gastrointestinal History: Reports: Gastritis, GERD, Hemorrhoids, Hiatal Hernia, PUD Musculoskeletal History: Reports: Back Pain, Chronic, Osteoarthritis, Other (See Below) Other Musculoskeletal History: bilat knee pain Neurological History: Reports: Migraines Endocrine/Metabolic History: Reports: Hypothyroidism, Osteopenia, Vitamin D Deficiency Hematologic History: Reports: B12 Deficiency, Blood Transfusion(s), Iron Deficiency Dermatologic History: Reports: Seborrheic Dermatitis - Infectious Disease History Infectious Disease History: Reports: C-Difficile, Measles, Mumps - Past Surgical History HEENT Surgical History: Reports: Cataract Surgery, Oral Surgery Cardiovascular Surgical History: Reports: None Respiratory Surgical History: Reports: Tracheostomy Other Respiratory Surgeries/Procedures: trach removed in 2001 GI Surgical History: Reports: Bariatric Procedure, Colonoscopy, EGD, Hernia, Abdominal Female Surgical History: Reports: D&C Oncologic Surgical History: Reports: None Dermatological Surgical History: Reports: Plastic Surgical Reconstruction/Repair Social & Family History - Tobacco Use Smoking Status *Q: Never Smoker - Caffeine Use Caffeine Use: Reports: Coffee H&P Review of Systems - Review of Systems: Review Of Systems: See Below General: Reports: Fever, Chills, Malaise, Weakness, Fatigue, Decreased Appetite HEENT: Reports: Headaches. Denies: Ear Pain, Rhinitis, Post Nasal Drip, Sinus Congestion Pulmonary: Reports: No Symptoms Cardiovascular: Reports: No Symptoms Gastrointestinal: Reports: No Symptoms Genitourinary: Reports: No Symptoms Musculoskeletal: Reports: Muscle Pain. Denies: Neck Pain, Back Pain Skin: Reports: No Symptoms Psychiatric: Reports: No Symptoms Neurological: Reports: Headache. Denies: Confusion, Dizziness, Numbness, Difficulty Walking, Change in Speech Hematologic/Lymphatic: Reports: No Symptoms Immunologic: Reports: No Symptoms Exam - Exam Exam: See Below - Vital Signs Vital Signs: Last Vital Signs Temp 101.3 F H 05/14/20 16:29 Pulse 98 05/14/20 18:10 Resp 16 05/14/20 18:10 BP 137/71 05/14/20 18:10 Pulse Ox 93 L 05/14/20 18:10 Weight: 115 lb 15.41 oz - Exam Quality Assessment: DVT Prophylaxis General: Alert, Oriented, Cooperative, Moderate Distress HEENT: Conjunctiva Clear, Hearing Intact, Mucosa Moist & [place], Normal Nasal Septum, Posterior Pharynx Clear, Pupils Equal Neck: Supple, Trachea Midline, +2 Carotid Pulse wo Bruit Lungs: Clear to Auscultation, Normal Respiratory Effort, Decreased Breath Sounds Cardiovascular: Regular Rate, Regular Rhythm, Normal S1, Normal S2. No: Systolic Murmur, Diastolic Murmur GI/Abdominal Exam: Soft, Non-Tender, No Organomegaly, No Distention Back Exam: Normal Inspection, Full Range of Motion Extremities: Non-Tender, No Pedal Edema Skin: Warm, Dry, Intact Neurological: Cranial Nerves Intact, Strength Equal Bilateral, Normal Speech, Normal Tone, Sensation Intact. No: Focal Deficit Neuro Extensive - Mental Status: Alert, Oriented x3, Normal Mood/Affect, Normal Cognition, Memory Intact - Patient Data Lab Results Last 24 hrs: Laboratory Results - last 24 hr 05/14/20 05/14/20 05/14/20 Range/Units 17:00 17:15 17:15 WBC 4.9 (4.5-11.0) K/uL RBC 4.15 (3.30-5.50) M/uL Hgb 12.5 (12.0-15.0) g/dL Hct 39.6 (36.0-48.0) % MCV 95 (80-98) fL MCH 30 (27-31) pg MCHC 32 (32-36) % Plt Count 101 L (150-400) K/uL Neut % (Auto) 93 H (36-66) % Lymph % (Auto) 3 L (24-44) % [place] % (Auto) 4 (2-6) % Eos % (Auto) 0 L (2-4) % Baso % (Auto) 0 (0-1) % Sodium (140-148) mmol/L Potassium (3.6-5.2) mmol/L Chloride (100-108) mmol/L Carbon Dioxide (21-32) mmol/L Anion Gap (5.0-14.0) mmol/L BUN (7-18) mg/dL Creatinine (0.6-1.0) mg/dL Est Cr Clr Drug Dosing mL/min Estimated GFR (MDRD) (>60) Glucose (74-106) mg/dL Lactic Acid (0.4-2.0) mmol/L Calcium (8.5-10.1) mg/dL Total Bilirubin (0.2-1.0) mg/dL AST (15-37) U/L ALT (12-78) U/L Alkaline Phosphatase (46-116) U/L Troponin I < 0.017 (0.000-0.056) ng/mL C-Reactive Protein (0.0-0.3) mg/dL Total Protein (6.4-8.2) g/dL Albumin (3.4-5.0) g/dL Globulin (2.3-3.5) g/dL Albumin/Globulin Ratio (1.2-2.2) Lipase 26 L (73-393) U/L Procalcitonin 0.33 ng/mL 05/14/20 05/14/20 Range/Units 17:15 17:15 WBC (4.5-11.0) K/uL RBC (3.30-5.50) M/uL Hgb (12.0-15.0) g/dL Hct (36.0-48.0) % MCV (80-98) fL MCH (27-31) pg MCHC (32-36) % Plt Count (150-400) K/uL Neut % (Auto) (36-66) % Lymph % (Auto) (24-44) % [place] % (Auto) (2-6) % Eos % (Auto) (2-4) % Baso % (Auto) (0-1) % Sodium 133 L (140-148) mmol/L Potassium 4.1 (3.6-5.2) mmol/L Chloride 98 L (100-108) mmol/L Carbon Dioxide 28 (21-32) mmol/L Anion Gap 11.1 (5.0-14.0) mmol/L BUN 16 (7-18) mg/dL Creatinine 0.8 (0.6-1.0) mg/dL Est Cr Clr Drug Dosing 34.24 mL/min Estimated GFR (MDRD) > 60 (>60) Glucose 156 H (74-106) mg/dL Lactic Acid 1.5 (0.4-2.0) mmol/L Calcium 8.9 (8.5-10.1) mg/dL Total Bilirubin 0.6 (0.2-1.0) mg/dL AST 60 H D (15-37) U/L ALT 37 D (12-78) U/L Alkaline Phosphatase 51 (46-116) U/L Troponin I (0.000-0.056) ng/mL C-Reactive Protein 8.43 H (0.0-0.3) mg/dL Total Protein 6.3 L (6.4-8.2) g/dL Albumin 2.9 L (3.4-5.0) g/dL Globulin 3.4 (2.3-3.5) g/dL Albumin/Globulin Ratio 0.9 L (1.2-2.2) Lipase (73-393) U/L Procalcitonin ng/mL Result Diagrams: 05/14/20 17:15 05/14/20 17:15 [place] Results Last 24 hrs: Microbiology 05/14/20 18:15 Influenza Type A Antigen Screen - Final Nasal Aspirate, Unspecified NEGATIVE INFLUENZA A VIRUS AG REFERENCE RANGE: NEGATIVE Influenza Type B Antigen Screen - Final NEGATIVE INFLUENZA B VIRUS AG REFERENCE RANGE: NEGATIVE Sepsis Event Note - Evaluation Sepsis Screening Result: Possible Sepsis Risk - Focused Exam Vital Signs: Vital Signs Temp Pulse Resp BP Pulse Ox 05/14/20 18:10 98 16 137/71 93 L 05/14/20 17:10 102 H 127/53 L 93 L 05/14/20 16:44 100 132/62 91 L 05/14/20 16:29 101.3 F H 110 H 16 169/97 H 94 L 05/14/20 16:15 101.3 F H 110 H 16 169/97 H 94 L *Q Meaningful Use (ADM) - VTE Risk Assess *Q Each Risk Factor Represents 1 Point: Abnormal Pulmonary Function (COPD) Total Score 1 Point Risk Factors: 1 Each Risk Factor Represents 2 Points: None Total Score 2 Point Risk Factors: 0 Each Risk Factor Represents 3 Points: Age 75 Years or Greater Total Score 3 Point Risk Factors: 3 Each Risk Factor Represents 5 Points: None Total Score 5 Point Risk Factors: 0 Venous Thromboembolism Risk Factor Score *Q: 4 Problem List Initiated/Reviewed/Updated: Yes Orders Last 24hrs: Active Orders 24 hr Category Date Time Status Patient Status Manage Transfer [TRANSFER] Routine ADT 05/14/20 18:31 Ordered Vital Signs [RC] Q1H Care 05/14/20 17:00 Active Chest 1V Frontal [CR] Stat Exams 05/14/20 16:59 Taken CORONAVIRUS COVID-19 EMMETT [MOLEC] Stat Lab 05/14/20 17:51 Received CULTURE BLOOD [BC] Urgent Lab 05/14/20 17:10 Received CULTURE BLOOD [BC] Urgent Lab 05/14/20 17:15 Received LACTATE SEPSIS W/ REFLEX [CHEM] Stat Lab 05/14/20 17:15 Received UA W/MICROSCOPIC [URIN] Urgent Lab 05/14/20 16:59 Ordered Doxycycline [Vibramycin] 100 mg Med 05/14/20 17:56 Active Sodium Chloride 0.9% [Normal Saline] 100 ml IV ONETIME Lactated Ringers [Ringers, Lactated] 1,000 ml Med 05/14/20 17:00 Active IV ASDIRECTED Blood Culture x2 Reflex Set [OM.PC] Urgent Oth 05/14/20 17:00 Ordered Isolation [COMM] Routine Oth 05/14/20 17:47 Ordered Severe Sepsis Onset Time [OM.PC] Stat Oth 05/14/20 17:00 Ordered Resuscitation Status Routine Resus Stat 05/14/20 18:35 Ordered Medication Orders Lactated Ringer's (Ringers, Lactated) 1,000 mls @ 999 mls/hr IV ASDIRECTED SELINA Last Admin: 05/14/20 17:42 Dose: 999 mls/hr Documented by: PHIL Doxycycline Hyclate 100 mg/ (Sodium Chloride) 100 mls @ 100 mls/hr IV ONETIME ONE Stop: 05/14/20 18:55 Last Admin: 05/14/20 18:10 Dose: 100 mls/hr Documented by: PHIL Assessment/Plan Comment:: ASSESSMENT AND PLAN 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 No evidence of significant respiratory infection or other obvious source of infection. -Tick serology pending -Fluids for hydration -Doxycycline 100 mg IV every 12 hours COPD-no evidence of acute exacerbation -Continue outpatient medications MAINTENANCE ISSUES -DVT prophylaxis; Lovenox 40 mg subcu daily -GI prophylaxis; not indicated -Boyer catheter; not indicated -Nutrition; regular diet -Nicotine dependence; not required CODE STATUS-FULL CODE ADMISSION STATUS-patient will be admitted to inpatient status, expect at least a 2 night hospital stay for evaluation and management of problems as outlined above. At the time of this admission I do not reasonably expected evaluation and management of this problem will require more than a 96 hour hospital stay. DISPOSITION-anticipate discharge to home after the hospital stay. PRIMARY CARE PROVIDER-Dr. Shahid - Mortality Measure Prognosis:: Good
[2020-05-14] MEDS ORDERED: Diclofenac Sodium 1% Gel 100 GM Tube TOP SCH (19:55)
[2020-05-14] MEDS ORDERED: Albuterol 0.083% 2.5 MG/3 ML Neb Soln NEB PRN (19:55)
[2020-05-14] MEDS ORDERED: Ondansetron 4 MG/2 ML SDV IV PRN (19:55)
[2020-05-14] MEDS ORDERED: Acetaminophen 325 MG Tab PO PRN (19:55)
[2020-05-14] MEDS ORDERED: Polyethylene Glycol 3350 Powder 17 GM Packet PO PRN (19:55)
[2020-05-14] MEDS ORDERED: Sodium Chloride 0.9% 10 ML Syringe FLUSH PRN (19:55)
[2020-05-14] MEDS: Sodium Chloride 0.9% 1,000 ML IV SCH (20:12)
[2020-05-14] MEDS ORDERED: Glycopyrrolate 15.6 MCG Cap.W.Dev Kit of 6 IH SCH (21:00)
[2020-05-14] MEDS ORDERED: Enoxaparin 40 MG/0.4 ML Syringe SUBCUT SCH (21:00)
[2020-05-14] MEDS: Ibuprofen 400 MG Tab PO SCH (21:28)
[2020-05-14] MEDS: Clobetasol 0.05% Crm 30 GM Tube TOP SCH (21:29)
[2020-05-15] MEDS: Sodium Chloride 0.9% 1,000 ML IV SCH (04:07)
[2020-05-15] MEDS: Ibuprofen 400 MG Tab PO SCH ×3 (04:09→19:52)
[2020-05-15] MEDS: Doxycycline 100 MG in Sodium Chloride 0.9% 100 ML IV SCH ×2 (05:52→18:11)
[2020-05-15] MEDS: Glycopyrrolate 15.6 MCG Cap.W.Dev Kit of 6 IH SCH ×2 (07:21→20:01)
[2020-05-15] MEDS ORDERED: Levothyroxine 112 MCG Tab PO SCH ×2 (07:30→09:00)
[2020-05-15] MEDS: Aspirin 81 MG Tab.EC PO SCH (08:41)
[2020-05-15] MEDS: Clobetasol 0.05% Crm 30 GM Tube TOP SCH ×2 (08:41→20:01)
--- NOTE | 2020-05-15 10:48 | PCM.PN ---
- General Info Date of Service: 05/15/20 Subjective Update: No acute events overnight. She did have a fever to almost 101 degrees. Still has a headache but it is a little better. Myalgias are moderately improved. Nausea has resolved and appetite is a little better. Still quite weak but strength is a little better. White blood cell count and platelets are lower than yesterday. Overall she is feeling better. Functional Status: Reports: Pain Controlled, Tolerating Diet - Review of Systems General: Reports: Fever - Patient Data Vitals - Most Recent: Last Vital Signs Temp 35.5 C L 05/15/20 08:00 Pulse 75 05/15/20 08:00 Resp 16 05/15/20 08:00 BP 113/48 L 05/15/20 08:00 Pulse Ox 94 L 05/15/20 08:00 Weight - Most Recent: 52.617 kg I&O - Last 24 Hours: Intake & Output 05/14/20 05/15/20 05/15/20 22:59 06:59 14:59 Intake Total 240 1364 Output Total 675 200 Balance 240 689 -200 Lab Results Last 24 Hours: Laboratory Results - last 24 hr 05/14/20 05/14/20 05/14/20 Range/Units 17:00 17:15 17:15 WBC 4.9 (4.5-11.0) K/uL RBC 4.15 (3.30-5.50) M/uL Hgb 12.5 (12.0-15.0) g/dL Hct 39.6 (36.0-48.0) % MCV 95 (80-98) fL MCH 30 (27-31) pg MCHC 32 (32-36) % Plt Count 101 L (150-400) K/uL Neut % (Auto) 93 H (36-66) % Lymph % (Auto) 3 L (24-44) % [place] % (Auto) 4 (2-6) % Eos % (Auto) 0 L (2-4) % Baso % (Auto) 0 (0-1) % Sodium (140-148) mmol/L Potassium (3.6-5.2) mmol/L Chloride (100-108) mmol/L Carbon Dioxide (21-32) mmol/L Anion Gap (5.0-14.0) mmol/L BUN (7-18) mg/dL Creatinine (0.6-1.0) mg/dL Est Cr Clr Drug Dosing mL/min Estimated GFR (MDRD) (>60) Glucose (74-106) mg/dL Lactic Acid (0.4-2.0) mmol/L Calcium (8.5-10.1) mg/dL Total Bilirubin (0.2-1.0) mg/dL AST (15-37) U/L ALT (12-78) U/L Alkaline Phosphatase (46-116) U/L Troponin I < 0.017 (0.000-0.056) ng/mL C-Reactive Protein (0.0-0.3) mg/dL Total Protein (6.4-8.2) g/dL Albumin (3.4-5.0) g/dL Globulin (2.3-3.5) g/dL Albumin/Globulin Ratio (1.2-2.2) Lipase 26 L (73-393) U/L Procalcitonin 0.33 ng/mL Urine Color (YELLOW) Urine Appearance (CLEAR) Urine pH (5.0-8.0) Ur Specific [place] (1.008-1.030) Urine Protein (NEGATIVE) mg/dL Urine Glucose (UA) (NEGATIVE) mg/dL Urine Ketones (NEGATIVE) mg/dL Urine Occult Blood (NEGATIVE) Urine Nitrite (NEGATIVE) Urine Bilirubin (NEGATIVE) Urine Urobilinogen (0.2-1.0) EU/dL Ur Leukocyte Esterase (NEGATIVE) Urine RBC (0-5) Urine WBC (0-5) Ur Epithelial Cells Amorphous Sediment Urine Bacteria Urine Mucus SARS Virus RNA (PCR) (NEGATIVE) 05/14/20 05/14/20 05/14/20 Range/Units 17:15 17:15 17:51 WBC (4.5-11.0) K/uL RBC (3.30-5.50) M/uL Hgb (12.0-15.0) g/dL Hct (36.0-48.0) % MCV (80-98) fL MCH (27-31) pg MCHC (32-36) % Plt Count (150-400) K/uL Neut % (Auto) (36-66) % Lymph % (Auto) (24-44) % [place] % (Auto) (2-6) % Eos % (Auto) (2-4) % Baso % (Auto) (0-1) % Sodium 133 L (140-148) mmol/L Potassium 4.1 (3.6-5.2) mmol/L Chloride 98 L (100-108) mmol/L Carbon Dioxide 28 (21-32) mmol/L Anion Gap 11.1 (5.0-14.0) mmol/L BUN 16 (7-18) mg/dL Creatinine 0.8 (0.6-1.0) mg/dL Est Cr Clr Drug Dosing 34.24 mL/min Estimated GFR (MDRD) > 60 (>60) Glucose 156 H (74-106) mg/dL Lactic Acid 1.5 (0.4-2.0) mmol/L Calcium 8.9 (8.5-10.1) mg/dL Total Bilirubin 0.6 (0.2-1.0) mg/dL AST 60 H D (15-37) U/L ALT 37 D (12-78) U/L Alkaline Phosphatase 51 (46-116) U/L Troponin I (0.000-0.056) ng/mL C-Reactive Protein 8.43 H (0.0-0.3) mg/dL Total Protein 6.3 L (6.4-8.2) g/dL Albumin 2.9 L (3.4-5.0) g/dL Globulin 3.4 (2.3-3.5) g/dL Albumin/Globulin Ratio 0.9 L (1.2-2.2) Lipase (73-393) U/L Procalcitonin ng/mL Urine Color (YELLOW) Urine Appearance (CLEAR) Urine pH (5.0-8.0) Ur Specific [place] (1.008-1.030) Urine Protein (NEGATIVE) mg/dL Urine Glucose (UA) (NEGATIVE) mg/dL Urine Ketones (NEGATIVE) mg/dL Urine Occult Blood (NEGATIVE) Urine Nitrite (NEGATIVE) Urine Bilirubin (NEGATIVE) Urine Urobilinogen (0.2-1.0) EU/dL Ur Leukocyte Esterase (NEGATIVE) Urine RBC (0-5) Urine WBC (0-5) Ur Epithelial Cells Amorphous Sediment Urine Bacteria Urine Mucus SARS Virus RNA (PCR) Negative (NEGATIVE) 05/14/20 05/15/20 05/15/20 Range/Units 19:29 04:00 04:00 WBC 2.7 L (4.5-11.0) K/uL RBC 3.78 (3.30-5.50) M/uL Hgb 11.3 L (12.0-15.0) g/dL Hct 36.5 (36.0-48.0) % MCV 97 (80-98) fL MCH 30 (27-31) pg MCHC 31 L (32-36) % Plt Count 77 L (150-400) K/uL Neut % (Auto) 79 H (36-66) % Lymph % (Auto) 14 L (24-44) % [place] % (Auto) 7 H (2-6) % Eos % (Auto) 0 L (2-4) % Baso % (Auto) 0 (0-1) % Sodium 137 L (140-148) mmol/L Potassium 3.5 L (3.6-5.2) mmol/L Chloride 103 (100-108) mmol/L Carbon Dioxide 29 (21-32) mmol/L Anion Gap 8.5 (5.0-14.0) mmol/L BUN 15 (7-18) mg/dL Creatinine 0.9 (0.6-1.0) mg/dL Est Cr Clr Drug Dosing TNP mL/min Estimated GFR (MDRD) 59 L (>60) Glucose 99 (74-106) mg/dL Lactic Acid (0.4-2.0) mmol/L Calcium 8.3 L (8.5-10.1) mg/dL Total Bilirubin (0.2-1.0) mg/dL AST (15-37) U/L ALT (12-78) U/L Alkaline Phosphatase (46-116) U/L Troponin I (0.000-0.056) ng/mL C-Reactive Protein (0.0-0.3) mg/dL Total Protein (6.4-8.2) g/dL Albumin (3.4-5.0) g/dL Globulin (2.3-3.5) g/dL Albumin/Globulin Ratio (1.2-2.2) Lipase (73-393) U/L Procalcitonin ng/mL Urine Color [place] A (YELLOW) Urine Appearance Clear (CLEAR) Urine pH 5.5 (5.0-8.0) Ur Specific [place] 1.025 (1.008-1.030) Urine Protein 30 H (NEGATIVE) mg/dL Urine Glucose (UA) Negative (NEGATIVE) mg/dL Urine Ketones 15 H (NEGATIVE) mg/dL Urine Occult Blood Moderate H (NEGATIVE) Urine Nitrite Negative (NEGATIVE) Urine Bilirubin Negative (NEGATIVE) Urine Urobilinogen 1.0 (0.2-1.0) EU/dL Ur Leukocyte Esterase Negative (NEGATIVE) Urine RBC Not seen (0-5) Urine WBC Not seen (0-5) Ur Epithelial Cells Rare Amorphous Sediment Few Urine Bacteria Not seen Urine Mucus Not seen SARS Virus RNA (PCR) (NEGATIVE) [place] Results Last 24 Hours: Microbiology 05/14/20 18:15 Influenza Type A Antigen Screen - Final Nasal Aspirate, Unspecified NEGATIVE INFLUENZA A VIRUS AG REFERENCE RANGE: NEGATIVE Influenza Type B Antigen Screen - Final NEGATIVE INFLUENZA B VIRUS AG REFERENCE RANGE: NEGATIVE Med Orders - Current: Current Medications Acetaminophen (Tylenol) 650 mg PO Q4H PRN PRN Reason: Pain (Mild 1-3)/fever Albuterol (Proventil Neb Soln) 2.5 mg NEB Q4H PRN PRN Reason: Shortness Of Breath/wheezing Aspirin (Halfprin) 81 mg PO DAILY [facility] Last Admin: 05/15/20 08:41 Dose: 81 mg Documented by: Clobetasol Propionate (Clobetasol 0.05%) 0 gm TOP BID [facility] Last Admin: 05/15/20 08:41 Dose: 1 applic Documented by: Diclofenac Sodium (Voltaren 1% Gel) 2 gm TOP ASDIRECTED [facility] Enoxaparin Sodium (Lovenox) 40 mg SUBCUT BEDTIME [facility] Last Admin: 05/14/20 21:29 Dose: 40 mg Documented by: Glycopyrrolate (Seebri Neohaler) 15.6 mcg IH BIDRT [facility] Last Admin: 05/15/20 07:21 Dose: 15.6 mcg Documented by: Sodium Chloride (Normal Saline) 1,000 mls @ 125 mls/hr IV ASDIRECTED [facility] Last Admin: 05/15/20 04:07 Dose: 125 mls/hr Documented by: Doxycycline Hyclate 100 mg/ (Sodium Chloride) 100 mls @ 100 mls/hr IV Q12H [facility] Last Admin: 05/15/20 05:52 Dose: 100 mls/hr Documented by: Ibuprofen (Motrin) 400 mg PO Q8H [facility] Levothyroxine Sodium (Levothyroxine) 112 mcg PO ACBREAKFAST [facility] Last Admin: 05/15/20 08:40 Dose: 112 mcg Documented by: Ondansetron HCl (Zofran) 4 mg IV Q4H PRN PRN Reason: Nausea/Vomiting Polyethylene Glycol (Miralax) 17 gm PO DAILY PRN PRN Reason: Constipation Sodium Chloride (Saline Flush) 10 ml FLUSH ASDIRECTED PRN PRN Reason: Keep Vein Open Discontinued Medications Glycopyrrolate (Seebri Neohaler) 15.6 mcg IH BID [facility] Last Admin: 05/14/20 21:29 Dose: 1 puff Documented by: Lactated Ringer's (Ringers, Lactated) 1,000 mls @ 999 mls/hr IV ASDIRECTED [facility] Last Admin: 05/14/20 17:42 Dose: 999 mls/hr Documented by: Doxycycline Hyclate 100 mg/ (Sodium Chloride) 100 mls @ 100 mls/hr IV ONETIME ONE Stop: 05/14/20 18:55 Last Admin: 05/14/20 18:10 Dose: 100 mls/hr Documented by: Ceftriaxone Sodium 1 gm/ (Sodium Chloride) 50 mls @ 100 mls/hr IV ONETIME ONE Stop: 05/14/20 18:25 Last Admin: 05/14/20 18:11 Dose: 100 mls/hr Documented by: Ibuprofen (Motrin) 400 mg PO Q8H [facility] Last Admin: 05/15/20 04:09 Dose: 400 mg Documented by: Levothyroxine Sodium (Levothyroxine) 112 mcg PO DAILY [facility] - Exam Quality Assessment: No: Supplemental Oxygen General: Alert, Oriented, Cooperative, No Acute Distress Lungs: Normal Respiratory Effort Cardiovascular: Regular Rate, Regular Rhythm GI/Abdominal Exam: Soft Extremities: No Pedal Edema Psy/Mental Status: Alert, Normal Affect Sepsis Event Note - Evaluation Sepsis Screening Result: No Definite Risk - Focused Exam Vital Signs: Vital Signs Temp Temp Pulse Resp BP Pulse Ox 05/15/20 08:00 35.5 C L 75 16 113/48 L 94 L 05/15/20 04:09 36.2 C 05/15/20 03:00 36.2 C 96 18 132/43 L 95 - Problem List Review Problem List Initiated/Reviewed/Updated: Yes - My Orders Last 24 Hours: My Active Orders 05/15/20 10:45 PT Evaluation and Treatment [CONS] Routine 05/15/20 10:46 Potassium Chloride [Klor-Con M20] 40 meq PO ONETIME ONE 05/15/20 11:00 Sodium Chloride 0.9% [Normal Saline] 1,000 ml IV ASDIRECTED 05/16/20 05:00 BASIC METABOLIC PANEL,BMP [CHEM] Timed CBC W/O DIFF,HEMOGRAM [HEME] Timed (1) - Plan Plan:: ASSESSMENT AND PLAN 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 Serology is pending. Improving with treatment for anaplasmosis. -Tick serology pending -Continue gentle fluids -Doxycycline 100 mg IV every 12 hours COPD-no evidence of acute exacerbation -Continue outpatient medications MAINTENANCE ISSUES -DVT prophylaxis; mechanical with thrombocytopenia -GI prophylaxis; not indicated -Boyer catheter; not indicated -Nutrition; regular diet DISPOSITION-anticipate discharge to home after the hospital stay. Sebastian Singh MD
[2020-05-15] MEDS ORDERED: Sodium Chloride 0.9% 1,000 ML IV SCH (11:00)
[2020-05-15] MEDS ORDERED: Potassium Chloride 20 MEQ Tab.ER PO ONE (11:00)
--- NOTE | 2020-05-15 11:00 | CR ---
CHEST: Portable 05/14/2020 at 5:27 PM CLINICAL HISTORY:Fever COMPARISON:2016 FINDINGS: The heart size, pulmonary vascularity and hilar structures are normal. No infiltrate effusion or pneumothorax is seen. There are atherosclerotic changes in the aorta. IMPRESSION: No acute cardiopulmonary process.
--- NOTE | 2020-05-15 23:43 | PCM.SN.2 ---
- Free Text/Narrative Note: times [id number] call [place] [address] [place] [phone]- single blood culture is positive. +gram positive cocci A: blood culture positive x 1 P: continue IV Doxycycline 100mg bid. continue present plan of care.
[2020-05-16] MEDS: Ibuprofen 400 MG Tab PO SCH (05:24)
[2020-05-16] MEDS: Doxycycline 100 MG in Sodium Chloride 0.9% 100 ML IV SCH (05:25)
[2020-05-16] MEDS ORDERED: Levothyroxine 100 MCG Tab PO SCH (07:30)
[2020-05-16] MEDS: Glycopyrrolate 15.6 MCG Cap.W.Dev Kit of 6 IH SCH (07:30)
[2020-05-16] MEDS: Clobetasol 0.05% Crm 30 GM Tube TOP SCH (08:06)
[2020-05-16] MEDS: Aspirin 81 MG Tab.EC PO SCH (08:06)
[2020-05-16 12:55] VITALS: BP 111/48; PULSE 79
--- NOTE | 2020-05-16 13:39 | PCM.DCSUM1 ---
Discharge Summary - Hospital Course Brief History: Healthy 89-year-old female with stable COPD who presented with fever, myalgia, weakness and headache. 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 PT Reason for Consult: Strengthening Special Instructions: if possible see today, pending discharge This query below is only for informational purposes and is not editable. Admission Diagnosis/Problem: COPD, Moderate chronic obstructive pulmonary disease Hospital Course: Hillary presented to the emergency room with weakness, headache, myalgias and fever. Work-up in the emergency room was consistent with acute anaplasmosis and the patient did have recent tick exposures. Given the severity of her weakness and progression of symptoms she was admitted to the hospital for further management. She received IV fluids as well as IV antibiotics. Over the first 24 hours we did see a drop in her white blood cell count and platelets as well as recurrent fevers. Her strength was a little better after hydration but she still remained quite weak. We continued the IV fluids and IV antibiotics and additional night. By the morning of discharge she is feeling quite a bit better. Her strength has improved significantly but not quite back to baseline. She has not had any nausea and her appetite has been good. She did have a bowel movement. She did not have any fevers overnight prior to discharge. White blood cell count and platelets are still a little low but improved compared to yesterday. She feels safe going home at this point and I believe she is safe for outpatient management as well. She will complete a 21-day course of doxycycline. Her anaplasmosis titer is pending at the time of discharge. - Patient Instructions Diet: Regular Diet as Tolerated Activity: As Tolerated Driving: May Drive Today Showering/Bathing: May Shower Notify Provider of: Fever, Increased Pain Other/Special Instructions: 1. You were in the hospital for management of anaplasmosis with manifestations including headache, muscle aches, weakness and fever. Your condition is improving with antibiotic therapy. I do recommend ongoing antibiotic therapy with doxycycline. Please take 100 mg twice daily with food for 19 more days. Your first dose outside of the hospital will be due tonight. This antibiotic can cause stomach upset so you should take it with food. This antibiotic can also make your skin more sensitive to the sunlight so you should be sure to cover up with either close or high potency sunscreen. - Discharge Plan *PRESCRIPTION DRUG MONITORING PROGRAM REVIEWED*: Not Applicable *COPY OF PRESCRIPTION DRUG MONITORING REPORT IN PATIENT LUCAS: Not Applicable Prescriptions/Med Rec: Doxycycline Hyclate 100 mg PO BID #38 capsule Home Medications: Home Meds Albuterol [Proair HFA] 2 puff INH Q4HR PRN 07/25/15 [History] Aspirin [Low Dose Aspirin EC] 81 mg PO DAILY 07/25/15 [History] Calcium Carbonate [Tums] 500 mg PO DAILY 07/25/15 [History] Cholecalciferol (Vitamin D3) [Vitamin D3] 3,000 unit PO DAILY 07/25/15 [History] Hydrocortisone Acetate [Anusol-Hc] 25 mg RC BID PRN 07/25/15 [History] Levothyroxine Sodium [Synthroid] 100 mcg PO DAILY 07/25/15 [History] Multivitamin with Minerals [Multiple Vitamin] 1 tab PO DAILY 07/25/15 [History] Polyvinyl Alcohol [LiquiTears 1.4% Ophth Soln] 1 drop EYEBOTH BID PRN 07/25/15 [History] Tiotropium [Spiriva HandiHaler] 1 cap INH DAILY 07/25/15 [History] Triamcinolone Acetonide [Triamcinolone Acetonide 0.1% Crm] 1 - 2 sprays TOP QID 07/25/15 [History] guaiFENesin [Mucinex] 600 mg PO ASDIRECTED PRN 07/25/15 [History] Glucosamine/D3/Boswellia Regla [Osteo Bi-Flex Caplet] 1 tab PO BID 11/11/16 [History] Diclofenac Sodium [Voltaren 1% Gel] 2 gm TOP ASDIRECTED 09/08/17 [History] Lutein 20 mg PO DAILY 09/08/17 [History] Albuterol [Proventil Neb Soln] 3 ml INH QID 07/31/18 [History] Clobetasol [Clobetasol 0.05%] 1 gm TOP BID 07/31/18 [History] Ibuprofen 400 mg PO Q8H 07/31/18 [History] Iron,Carbonyl/Ascorbic Acid [Fe C Tablet] 1 tab PO BID 07/31/18 [History] Ketoconazole [Nizoral] 1 gm TOP WEEKLY 07/31/18 [History] Naproxen Sodium [Aleve] 220 mg PO BID PRN 06/11/19 [History] Doxycycline Hyclate 100 mg PO BID #38 capsule 05/16/20 [Rx] Oxygen Therapy Mode: Room Air Patient Handouts: Tick Bite Information, Adult, [id number], Ehrlichiosis and Anaplasmosis, [id number] Referrals: Sadaf Shahid MD [Primary Care Provider] - 05/25/20 1:30 pm (1 week - f/u hospital stay for anaplasmosis, Due for B12 shot ) - Discharge Summary/Plan Comment DC Time >30 min.: No - Patient Data Vitals - Most Recent: Last Vital Signs Temp 36.1 C 05/16/20 12:48 Pulse 79 05/16/20 12:48 Resp 16 05/16/20 12:48 BP 111/48 L 05/16/20 12:48 Pulse Ox 96 05/16/20 12:48 Weight - Most Recent: 52.617 kg I&O - Last 24 hours: Intake & Output 05/15/20 05/16/20 05/16/20 22:59 06:59 14:59 Intake Total 1430 612 Output Total 700 1300 400 Balance 730 -742 -400 Lab Results - Last 24 hrs: Laboratory Results - last 24 hr 05/16/20 05/16/20 Range/Units 04:20 04:20 WBC 3.2 L (4.5-11.0) K/uL RBC 3.85 (3.30-5.50) M/uL Hgb 11.6 L (12.0-15.0) g/dL Hct 37.1 (36.0-48.0) % MCV 96 (80-98) fL MCH 30 (27-31) pg MCHC 31 L (32-36) % Plt Count 82 L (150-400) K/uL Sodium 142 (140-148) mmol/L Potassium 4.1 (3.6-5.2) mmol/L Chloride 108 (100-108) mmol/L Carbon Dioxide 26 (21-32) mmol/L Anion Gap 8.3 (5.0-14.0) mmol/L BUN 15 (7-18) mg/dL Creatinine 0.6 (0.6-1.0) mg/dL Est Cr Clr Drug Dosing 45.66 mL/min Estimated GFR (MDRD) > 60 (>60) Glucose 84 (74-106) mg/dL Calcium 8.4 L (8.5-10.1) mg/dL JOANNE Results - Last 24 hrs: Microbiology 05/14/20 17:10 Aerobic Blood Culture - Preliminary Blood - Venous Gram Positive Cocci Anaerobic Blood Culture - Preliminary NO GROWTH AFTER 1 DAY 05/14/20 17:15 Aerobic Blood Culture - Preliminary Blood - Venous - Lab Draw NO GROWTH AFTER 1 DAY Anaerobic Blood Culture - Preliminary NO GROWTH AFTER 1 DAY Med Orders - Current: Current Medications Acetaminophen (Tylenol) 650 mg PO Q4H PRN PRN Reason: Pain (Mild 1-3)/fever Albuterol (Proventil Neb Soln) 2.5 mg NEB Q4H PRN PRN Reason: Shortness Of Breath/wheezing Aspirin (Halfprin) 81 mg PO DAILY [facility] Last Admin: 05/16/20 08:06 Dose: 81 mg Documented by: Clobetasol Propionate (Clobetasol 0.05%) 0 gm TOP BID [facility] Last Admin: 05/16/20 08:06 Dose: 1 applic Documented by: Diclofenac Sodium (Voltaren 1% Gel) 2 gm TOP ASDIRECTED [facility] Glycopyrrolate (Seebri Neohaler) 15.6 mcg IH BIDRT [facility] Last Admin: 05/16/20 07:30 Dose: 15.6 mcg Documented by: Doxycycline Hyclate 100 mg/ (Sodium Chloride) 100 mls @ 100 mls/hr IV Q12H [facility] Last Admin: 05/16/20 05:25 Dose: 100 mls/hr Documented by: Sodium Chloride (Normal Saline) 1,000 mls @ 50 mls/hr IV ASDIRECTED [facility] Last Admin: 05/15/20 16:04 Dose: 50 mls/hr Documented by: Ibuprofen (Motrin) 400 mg PO Q8H [facility] Last Admin: 05/16/20 05:24 Dose: 400 mg Documented by: Levothyroxine Sodium (Synthroid) 100 mcg PO ACBREAKFAST [facility] Last Admin: 05/16/20 08:06 Dose: 100 mcg Documented by: Ondansetron HCl (Zofran) 4 mg IV Q4H PRN PRN Reason: Nausea/Vomiting Polyethylene Glycol (Miralax) 17 gm PO DAILY PRN PRN Reason: Constipation Last Admin: 05/16/20 05:40 Dose: 17 gm Documented by: Sodium Chloride (Saline Flush) 10 ml FLUSH ASDIRECTED PRN PRN Reason: Keep Vein Open Discontinued Medications Enoxaparin Sodium (Lovenox) 40 mg SUBCUT BEDTIME [facility] Last Admin: 05/14/20 21:29 Dose: 40 mg Documented by: Glycopyrrolate (Seebri Neohaler) 15.6 mcg IH BID [facility] Last Admin: 05/14/20 21:29 Dose: 1 puff Documented by: Lactated Ringer's (Ringers, Lactated) 1,000 mls @ 999 mls/hr IV ASDIRECTED [facility] Last Admin: 05/14/20 17:42 Dose: 999 mls/hr Documented by: Doxycycline Hyclate 100 mg/ (Sodium Chloride) 100 mls @ 100 mls/hr IV ONETIME ONE Stop: 05/14/20 18:55 Last Admin: 05/14/20 18:10 Dose: 100 mls/hr Documented by: Ceftriaxone Sodium 1 gm/ (Sodium Chloride) 50 mls @ 100 mls/hr IV ONETIME ONE Stop: 05/14/20 18:25 Last Admin: 05/14/20 18:11 Dose: 100 mls/hr Documented by: Sodium Chloride (Normal Saline) 1,000 mls @ 125 mls/hr IV ASDIRECTED [facility] Last Admin: 05/15/20 04:07 Dose: 125 mls/hr Documented by: Ibuprofen (Motrin) 400 mg PO Q8H [facility] Last Admin: 05/15/20 04:09 Dose: 400 mg Documented by: Levothyroxine Sodium (Levothyroxine) 112 mcg PO ACBREAKFAST [facility] Last Admin: 05/15/20 08:40 Dose: 112 mcg Documented by: Potassium Chloride (Klor-Con M20) 40 meq PO ONETIME ONE Stop: 05/15/20 11:01 Last Admin: 05/15/20 12:33 Dose: 40 meq Documented by:
[2020-05-17 14:13] LABS: HGE IGG TITER Negative (Neg:<1:64); HGE IGM TITER Negative (Neg:<1:20)
== END 2020-05-16 14:00 | disposition home or self-care (01) | DRG 869 ==
LOC: JP.ED 16:01 → JP.MS 18:31
PROVIDERS: ADMIT Hospitalist; ATTEND Internal Medicine
DX: A41.9 Sepsis, unspecified organism (principal); A77.49 Other ehrlichiosis; E86.0 Dehydration; Z87.01 Personal history of pneumonia (recurrent); J44.9 Chronic obstructive pulmonary disease, unspecified; H54.7 Unspecified visual loss; K21.9 Gastro-esophageal reflux disease without esophagitis; K44.9 Diaphragmatic hernia without obstruction or gangrene; K29.70 Gastritis, unspecified, without bleeding; G89.29 Other chronic pain; M54.9 Dorsalgia, unspecified; M19.90 Unspecified osteoarthritis, unspecified site; G43.909 Migraine, unspecified, not intractable, without status migrainosus; E03.9 Hypothyroidism, unspecified; E61.1 Iron deficiency; E55.9 Vitamin D deficiency, unspecified; M85.80 Other specified disorders of bone density and structure, unspecified site; E53.8 Deficiency of other specified B group vitamins; L21.9 Seborrheic dermatitis, unspecified; Z98.49 Cataract extraction status, unspecified eye; Z79.899 Other long term (current) drug therapy; Z20.828 Contact with and (suspected) exposure to other viral communicable diseases; Z88.8 Allergy status to other drugs, medicaments and biological substances; Z79.82 Long term (current) use of aspirin; Z79.890 Hormone replacement therapy; Z88.1 Allergy status to other antibiotic agents; Z88.5 Allergy status to narcotic agent; Z87.11 Personal history of peptic ulcer disease; Z98.84 Bariatric surgery status; Z93.0 Tracheostomy status
CPT/HCPCS: 36415; 71045 ×2; 80053; 83605; 83690; 84145; 84484; 85025; 86140; 86666 ×2; 87040 ×2; 87804 ×2; 96361; 96365; 96368; 99285; J0696; J3490; J7050 ×2; J7120; U0002; 80048; 81001; 85027; 87077; 87186; 94640; 97161-GP; 97530-GP; A9270-GY; J1650; J7030

== ENCOUNTER 2020-06-04 18:09 | Emergency (ER) | payer MEDICARE, BC ==
[2020-06-04 18:47] VITALS: BP 160/64; PULSE 91
--- NOTE | 2020-06-04 19:04 | EDM.PDOC ---
ED HPI GENERAL MEDICAL PROBLEM - General Chief Complaint: General Stated Complaint: HEADACHE/TIRED Time Seen by Provider: 06/04/20 18:50 Source of Information: Reports: Patient, Old Records, RN History Limitations: Reports: No Limitations - History of Present Illness INITIAL COMMENTS - FREE TEXT/NARRATIVE: 89 yo female presents with mild fatigue and mental fogginess for a few days. 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 Has 2 doses of her doxycycline left. 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 (see below) (almost done with her course of doxycycline) - Related Data Allergies Allergy/AdvReac Type Severity Reaction Status Date / Time amoxicillin Allergy Other Verified 06/04/20 18:33 hydroxychloroquine Allergy Other Verified 06/04/20 18:33 levothyroxine sodium Allergy Cannot Verified 06/04/20 18:33 Remember lisinopril Allergy Cannot Verified 06/04/20 18:33 Remember meperidine HCl [From Demerol] Allergy Burning Verified 06/04/20 18:33 zolpidem AdvReac Confusion Verified 06/04/20 18:33 zolpidem tartrate AdvReac Delusions Verified 06/04/20 18:33 [From Ambien] Home Meds: Home Meds Albuterol [Proair HFA] 2 puff INH Q4HR PRN 07/25/15 [History] Aspirin [Low Dose Aspirin EC] 81 mg PO DAILY 07/25/15 [History] Calcium Carbonate [Tums] 500 mg PO DAILY 07/25/15 [History] Cholecalciferol (Vitamin D3) [Vitamin D3] 3,000 unit PO DAILY 07/25/15 [History] Hydrocortisone Acetate [Anusol-Hc] 25 mg RC BID PRN 07/25/15 [History] Levothyroxine Sodium [Synthroid] 100 mcg PO DAILY 07/25/15 [History] Multivitamin with Minerals [Multiple Vitamin] 1 tab PO DAILY 07/25/15 [History] Polyvinyl Alcohol [LiquiTears 1.4% Ophth Soln] 1 drop EYEBOTH BID PRN 07/25/15 [History] Tiotropium [Spiriva HandiHaler] 1 cap INH DAILY 07/25/15 [History] Triamcinolone Acetonide [Triamcinolone Acetonide 0.1% Crm] 1 - 2 sprays TOP QID 07/25/15 [History] guaiFENesin [Mucinex] 600 mg PO ASDIRECTED PRN 07/25/15 [History] Glucosamine/D3/Boswellia Regla [Osteo Bi-Flex Caplet] 1 tab PO BID 11/11/16 [History] Diclofenac Sodium [Voltaren 1% Gel] 2 gm TOP ASDIRECTED 09/08/17 [History] Lutein 20 mg PO DAILY 09/08/17 [History] Albuterol [Proventil Neb Soln] 3 ml INH QID 07/31/18 [History] Clobetasol [Clobetasol 0.05%] 1 gm TOP BID 07/31/18 [History] Ibuprofen 400 mg PO Q8H 07/31/18 [History] Iron,Carbonyl/Ascorbic Acid [Fe C Tablet] 1 tab PO BID 07/31/18 [History] Ketoconazole [Nizoral] 1 gm TOP WEEKLY 07/31/18 [History] Naproxen Sodium [Aleve] 220 mg PO BID PRN 06/11/19 [History] Doxycycline Hyclate 100 mg PO BID #38 capsule 05/16/20 [Rx] Past Medical History HEENT History: Reports: Cataract, Impaired Vision Cardiovascular History: Reports: Heart Murmur Respiratory History: Reports: Bronchitis, Recurrent, COPD, Intubation, Difficult, Intubation, Previous, Pneumonia, Recurrent, Other (See Below) Other Respiratory History: past trach from injury during intubation. Gastrointestinal History: Reports: Gastritis, GERD, Hemorrhoids, Hiatal Hernia, PUD Musculoskeletal History: Reports: Back Pain, Chronic, Osteoarthritis, Other (See Below) Other Musculoskeletal History: bilat knee pain Neurological History: Reports: Migraines Endocrine/Metabolic History: Reports: Hypothyroidism, Osteopenia, Vitamin D Deficiency Hematologic History: Reports: B12 Deficiency, Blood Transfusion(s), Iron Deficiency Dermatologic History: Reports: Seborrheic Dermatitis - Infectious Disease History Infectious Disease History: Reports: C-Difficile, Measles, Mumps - Past Surgical History HEENT Surgical History: Reports: Cataract Surgery, Oral Surgery Cardiovascular Surgical History: Reports: None Respiratory Surgical History: Reports: Tracheostomy Other Respiratory Surgeries/Procedures: trach removed in 2001 GI Surgical History: Reports: Bariatric Procedure, Colonoscopy, EGD, Hernia, Abdominal Female Surgical History: Reports: D&C Oncologic Surgical History: Reports: None Dermatological Surgical History: Reports: Plastic Surgical Reconstruction/Repair Social & Family History - Tobacco Use Smoking Status *Q: Never Smoker - Caffeine Use Caffeine Use: Reports: Coffee ED ROS GENERAL - Review of Systems Review Of Systems: See Below Constitutional: Reports: No Symptoms HEENT: Reports: No Symptoms Respiratory: Reports: No Symptoms Cardiovascular: Reports: No Symptoms Endocrine: Reports: Fatigue (mild) GI/Abdominal: Reports: No Symptoms : Reports: No Symptoms Musculoskeletal: Reports: No Symptoms Skin: Reports: No Symptoms Neurological: Reports: No Symptoms Psychiatric: Reports: No Symptoms ED EXAM, GENERAL - Physical Exam Exam: See Below Exam Limited By: No Limitations General Appearance: Alert, WD/WN, No Apparent Distress Eye Exam: Bilateral Eye: Normal Inspection Ears: Normal External Exam, Normal Canal, Hearing Grossly Normal, Normal TMs Ear Exam: Bilateral Ear: Auricle Normal, Canal Normal, TM normal Nose: Normal Inspection, No Blood Throat/Mouth: Normal Inspection, Normal Lips, Normal Oropharynx, Normal Voice, No Airway Compromise Head: Atraumatic, Normocephalic Neck: Normal Inspection Respiratory/Chest: No Respiratory Distress, Lungs Clear, Normal Breath Sounds, No Accessory Muscle Use Cardiovascular: Regular Rate, Rhythm, No Edema GI/Abdominal: Normal Bowel Sounds, Soft, Non-Tender Back Exam: Normal Inspection. No: CVA Tenderness (R), CVA Tenderness (L) Extremities: Normal Inspection, Normal Range of Motion, Non-Tender, No Pedal Edema Neurological: Alert, Oriented, CN II-XII Intact, Normal Cognition, No Motor/Sensory Deficits Psychiatric: Normal Affect, Normal Mood Skin Exam: Warm, Dry, Intact, Normal Color, No Rash Course - Vital Signs Last Recorded V/S: Last Vital Signs Temp 36.1 C 06/04/20 18:46 Pulse 91 06/04/20 18:46 Resp 14 06/04/20 18:46 BP 160/64 H 06/04/20 18:46 Pulse Ox 97 06/04/20 18:46 - Orders/Labs/Meds Labs: Laboratory Tests 06/04/20 06/04/20 06/04/20 Range/Units 19:11 19:11 19:17 WBC 3.6 L (4.5-11.0) K/uL RBC 3.94 (3.30-5.50) M/uL Hgb 11.8 L (12.0-15.0) g/dL Hct 38.6 (36.0-48.0) % MCV 98 (80-98) fL MCH 30 (27-31) pg MCHC 31 L (32-36) % Plt Count 306 (150-400) K/uL TSH, Ultra Sensitive 0.788 (0.358-3.740) uIU/mL Urine Color Yellow (YELLOW) Urine Appearance Clear (CLEAR) Urine pH 6.0 (5.0-8.0) Ur Specific Gaylord >= 1.030 (1.008-1.030) Urine Protein Negative (NEGATIVE) mg/dL Urine Glucose (UA) Negative (NEGATIVE) mg/dL Urine Ketones Negative (NEGATIVE) mg/dL Urine Occult Blood Trace-intact H (NEGATIVE) Urine Nitrite Negative (NEGATIVE) Urine Bilirubin Negative (NEGATIVE) Urine Urobilinogen 0.2 (0.2-1.0) EU/dL Ur Leukocyte Esterase Negative (NEGATIVE) Urine RBC 5-10 H (0-5) Urine WBC Not seen (0-5) Ur Epithelial Cells Few Urine Bacteria Not seen Urinalysis Comment See note - Re-Assessments/Exams Free Text/Narrative Re-Assessment/Exam: 06/04/20 19:55 Was given extra water to drink for mild dehydration. Departure - Departure Time of Disposition: 19:56 Disposition: Home, Self-Care 01 Condition: Good Clinical Impression: Mild dehydration - Discharge Information *PRESCRIPTION DRUG MONITORING PROGRAM REVIEWED*: Not Applicable *COPY OF PRESCRIPTION DRUG MONITORING REPORT IN PATIENT LUCAS: Not Applicable Instructions: Dehydration, Elderly, [id number] Referrals: Verna Maria PA-C [Primary Care Provider] - Forms: ED Department Discharge Additional Instructions: Drink enough fluids so that your urine is light yellow in color. Keep your appt for later in the week with your provider. Finish your doxycycline as directed. Sepsis Event Note (ED) - Evaluation Sepsis Screening Result: No Definite Risk - Focused Exam Vital Signs: Vital Signs Temp Pulse Resp BP Pulse Ox 06/04/20 18:46 36.1 C 91 14 160/64 H 97
== END 2020-06-04 20:16 | disposition home or self-care (01) ==
LOC: JP.ED 18:09
DX: E86.0 Dehydration (principal); J44.9 Chronic obstructive pulmonary disease, unspecified; E03.9 Hypothyroidism, unspecified; Z88.1 Allergy status to other antibiotic agents; Z88.8 Allergy status to other drugs, medicaments and biological substances; Z88.5 Allergy status to narcotic agent; Z79.82 Long term (current) use of aspirin; Z79.899 Other long term (current) drug therapy
CPT/HCPCS: 36415; 81001; 84443; 85027; 99282; 99283